=== PATIENT | female | born 1950 | race Caucasian/White ===

== ENCOUNTER 2018-03-24 07:07 | Day surgery (SDC) | payer MEDICARE ==
[~2018-03-24 07:07] MED LIST: Acetaminophen TAB* 325 MG PO PRN; Buffered Lidocaine 0.9% SYRIN* 5 ML/SYR SYRINGE INTRADERM ONE
[2018-03-24] MEDS ORDERED: Midazolam* 1 MG/ML 2 ML VIAL (2 MG) ONE (08:11)
[2018-03-24 08:58] VITALS: BP 134/65
[2018-03-24] MEDS ORDERED: Lidocaine 1%* 5 ML VIAL ONE (10:22)
[2018-03-24] MEDS ORDERED: Neomycin/Polymy/Dex OPHTH.OIN* 3.5 GM ONE (10:22)
[2018-03-24] MEDS ORDERED: Povidone Iodine 5% OPTH* 30 ML BTL ONE (10:22)
[2018-03-24] MEDS ORDERED: acetaZOLAMIDE TAB* 250 MG ONE (10:22)
[2018-03-24] MEDS ORDERED: Cyclopentolate 1% OPTH.SOL* 2 ML BTL ONE (10:22)
[2018-03-24] MEDS ORDERED: Phenylephrine 2.5% OPTH.SOL* 2 ML BTL ONE (10:22)
[2018-03-24] MEDS ORDERED: Tetracaine 0.5% OPTH.SOL 4 ML* 1 DROP BTL ONE (10:22)
[2018-03-24] MEDS ORDERED: Ketorolac 0.5% OPHTH (NF) 0.5 % 5 ML BTL ONE (10:22)
[2018-03-24] MEDS ORDERED: Tropicamide 1% OPTH.SOL* BTL ONE (10:22)
--- NOTE | 2018-03-25 09:51 | OP ---
DATE OF OPERATION: 03/24/18 - [facility] DATE OF : 46 SURGEON: Stas Tobin MD ANESTHESIA: Monitored anesthesia care. PREOPERATIVE DIAGNOSIS: Cataract, right eye. POSTOPERATIVE DIAGNOSIS: Cataract, right eye. OPERATIVE PROCEDURE: Extracapsular cataract extraction of the right eye with intraocular lens implant. IMPLANT: SN60WF 21.0 diopter lens to the right eye. COMPLICATIONS: None. DESCRIPTION OF PROCEDURE: The patient was given phenylephrine 2.5 % and cyclopentolate 1% eye drops to the operative eye in the preoperative area. The patient was taken to the operating room where a time-out was taken to identify the correct patient, site, and side of surgery. The patient's right eye was prepped and draped in the usual sterile fashion with 5% Betadine. A second time- out was taken to verify the correct patient, side, and site of surgery, as well as the correct lens implant. A lid speculum was placed to the right eye. A 1mm paracentesis blade was used to make a clear corneal incision. Preservative-free 1% lidocaine was injected into the anterior chamber. DisCoVisc was then injected into the anterior chamber. A 2.75 mm keratome blade was used to make a triplanar incision. A cystotome initiated a capsulorrhexis, which was completed with Utrata forceps in a continuous and curvilinear manner. Hydrodissection of the lens was performed with BSS on a cannula. The lens could be spun in a capsular bag. The phacoemulsification handpiece was used with a divide-and- conquer technique to remove the nucleus. The I/A handpiece then removed the residual cortical lens material. DisCoVisc was injected to inflate the capsular bag. The planned SN60WF 21.0 diopter lens was injected into the capsular bag. The residual DisCoVisc was removed from the eye with the I/A handpiece. The corneal incisions were hydrated and no leaks occurred at physiologic pressure around 20 mmHg per palpation. The lid speculum was removed and drapes were removed. Maxitrol ointment was placed to the surface of the operative eye. An adhesive patch and shield was then placed on the operative eye. The patient was taken to the postoperative area in stable condition. [id number]/[facility] #: [id number] [facility]
== END 2018-03-24 09:07 | disposition home or self-care (01) ==
LOC: OREAST 07:07
PROVIDERS: ATTEND Student in an Organized Health Care Education/Training Program
DX: Z01.818 Encounter for other preprocedural examination (principal); H25.13 Age-related nuclear cataract, bilateral; K21.9 Gastro-esophageal reflux disease without esophagitis; E78.00 Pure hypercholesterolemia, unspecified; E11.3293 Type 2 diabetes mellitus with mild nonproliferative diabetic retinopathy without macular edema, bilateral
CPT/HCPCS: A9270-GY; J2250; V2632

== ENCOUNTER 2018-03-29 10:44 | Day surgery (SDC) | payer MEDICARE ==
[2018-03-29] MEDS ORDERED: fentaNYL* 50 MCG/ML 2 ML VIAL (100 MCG VIAL) ONE (11:48)
[2018-03-29] MEDS ORDERED: Midazolam* 1 MG/ML 2 ML VIAL (2 MG) ONE (11:48)
[2018-03-29 12:47] VITALS: BP 143/59
[2018-03-29] MEDS ORDERED: Tropicamide 1% OPTH.SOL* BTL ONE (14:32)
[2018-03-29] MEDS ORDERED: Cyclopentolate 1% OPTH.SOL* 2 ML BTL ONE (14:32)
[2018-03-29] MEDS ORDERED: acetaZOLAMIDE TAB* 250 MG ONE (14:32)
[2018-03-29] MEDS ORDERED: Neomycin/Polymy/Dex OPHTH.OIN* 3.5 GM ONE (14:32)
[2018-03-29] MEDS ORDERED: Tetracaine 0.5% OPTH.SOL 4 ML* 1 DROP BTL ONE (14:32)
[2018-03-29] MEDS ORDERED: Lidocaine 1%* 5 ML VIAL ONE (14:32)
[2018-03-29] MEDS ORDERED: Povidone Iodine 5% OPTH* 30 ML BTL ONE (14:32)
[2018-03-29] MEDS ORDERED: Phenylephrine 2.5% OPTH.SOL* 2 ML BTL ONE (14:32)
[2018-03-29] MEDS ORDERED: Ketorolac 0.5% OPHTH (NF) 0.5 % 5 ML BTL ONE (14:32)
--- NOTE | 2018-03-29 15:09 | OP ---
DATE OF OPERATION: 03/29/2018 - [facility] DATE OF : 46 SURGEON: Stas Tobin MD ANESTHESIA: Monitored anesthesia care. PREOPERATIVE DIAGNOSIS: Cataract, left eye. POSTOPERATIVE DIAGNOSIS: Cataract, left eye. OPERATIVE PROCEDURE: Extracapsular cataract extraction of the left eye with intraocular lens implant. IMPLANT: SN60WF 21.0 diopter lens to the left eye. COMPLICATIONS: None. DESCRIPTION OF PROCEDURE: The patient was given phenylephrine 2.5 % and cyclopentolate 1% eye drops to the operative eye in the preoperative area. The patient was taken to the operating room where a time-out was taken to identify the correct patient, site, and side of surgery. The patient's left eye was prepped and draped in the usual sterile fashion with 5% Betadine. A second time- out was taken to verify the correct patient, side, and site of surgery, as well as the correct lens implant. A lid speculum was placed to the left eye. A 1mm paracentesis blade was used to make a clear corneal incision. Preservative-free 1% lidocaine was injected into the anterior chamber. DisCoVisc was then injected into the anterior chamber. A 2.75 mm keratome blade was used to make a triplanar incision. A cystotome initiated a capsulorrhexis, which was completed with Utrata forceps in a continuous and curvilinear manner. Hydrodissection of the lens was performed with BSS on a cannula. The lens could be spun in a capsular bag. The phacoemulsification handpiece was used with a divide-and- conquer technique to remove the nucleus. The I/A handpiece then removed the residual cortical lens material. DisCoVisc was injected to inflate the capsular bag. The planned SN60WF 21.0 diopter lens was injected into the capsular bag. The residual DisCoVisc was removed from the eye with the I/A handpiece. The corneal incisions were hydrated and no leaks occurred at physiologic pressure around 20 mmHg per palpation. The lid speculum was removed and drapes were removed. Maxitrol ointment was placed to the surface of the operative eye. An adhesive patch and shield was then placed on the operative eye. The patient was taken to the postoperative area in stable condition. [id number]/[facility] #: [id number] [facility]
== END 2018-03-29 13:05 | disposition home or self-care (01) ==
LOC: OREAST 10:44
PROVIDERS: ATTEND Student in an Organized Health Care Education/Training Program
DX: Z01.818 Encounter for other preprocedural examination (principal); H25.12 Age-related nuclear cataract, left eye; K21.9 Gastro-esophageal reflux disease without esophagitis; E78.00 Pure hypercholesterolemia, unspecified; E11.3293 Type 2 diabetes mellitus with mild nonproliferative diabetic retinopathy without macular edema, bilateral; Z88.0 Allergy status to penicillin; Z96.1 Presence of intraocular lens
CPT/HCPCS: A9270-GY; J2250; J3010; V2632

== ENCOUNTER 2018-04-07 19:42 | Emergency (ER) | payer MEDICARE ==
[2018-04-07 20:01] VITALS: BP 144/66
--- NOTE | 2018-04-07 21:31 | ED ---
Complex/Multi-Sys Presentation - HPI Summary HPI Summary: Ms. Mei fell in a store about 4 days ago landing on her right hip and arm. She had a great deal pain at the time both refused care. She has since been plagued with right hip pain and right elbow pain. She is walking but it is painful to walk. She did not hit her head and denies neck pain or weakness/ paresthesias. - History Of Current Complaint Chief Complaint: UCTrauma Time Seen by Provider: 04/07/18 20:29 Hx Obtained From: Patient Onset/Duration: Sudden Onset Timing: Constant Severity Currently: Moderate Severity Initially: Moderate Character: Sharp - Allergies/Home Medications Allergies/Adverse Reactions: Allergies Allergy/AdvReac Type Severity Reaction Status Date / Time Penicillins Allergy Hives Verified 04/07/18 20:02 PMH/Surg Hx/FS Hx/Imm Hx Endocrine/Hematology History: Reports: Hx Diabetes Denies: Hx Thyroid Disease Cardiovascular History: Denies: Hx Hypertension, Hx Pacemaker/ICD, Other Cardiovascular Problems/ Disorders Respiratory History: Denies: Hx Asthma, Hx Chronic Obstructive Pulmonary Disease (COPD), Other Respiratory Problems/Disorders GI History: Denies: Hx Ulcer, Other GI Disorders History: Denies: Other Problems/Disorders Musculoskeletal History: Reports: Hx Arthritis - mild arthritis per pt, Other Musculoskeletal History - Muscle aches and pains, states it is from the insulin Denies: Hx Osteoporosis Sensory History: Reports: Hx Cataracts - Bilateral, Hx Contacts or Glasses - glasses Denies: Hx Hearing Aid Opthamlomology History: Reports: Hx Cataracts - Bilateral, Hx Contacts or Glasses - glasses Neurological History: Denies: Other Neuro Impairments/Disorders Psychiatric History: Denies: Hx Panic Disorder - Cancer History Hx Chemotherapy: No Hx Radiation Therapy: No - Surgical History Surgery Procedure, Year, and Place: GALLBLADDER. CARDIAC CATH - NO STENTS "years ago" Hx Anesthesia Reactions: No Infectious Disease History: No Infectious Disease History: Denies: Hx Hepatitis, Hx Human Immunodeficiency Virus (HIV), Traveled Outside the [place] in Last 30 Days - Social History Alcohol Use: Rare Substance Use Type: Reports: None Smoking Status (MU): Never Smoked Tobacco Type: Cigarettes Review of Systems Constitutional: Negative Eyes: Negative ENT: Negative Cardiovascular: Negative Respiratory: Negative Gastrointestinal: Negative Genitourinary: Negative Positive: Arthralgia Skin: Negative Neurological: Negative Psychological: Normal All Other Systems Reviewed And Are Negative: Yes Physical Exam - Summary Physical Exam Summary: She is nontoxic in appearance and her vitals are stable but she is in some distress with ambulation. Triage Information Reviewed: Yes Vital Signs On Initial Exam: Initial Vitals Temp Pulse Resp BP Pulse Ox 99.2 F 85 18 144/66 97 04/07/18 19:57 04/07/18 19:57 04/07/18 19:57 04/07/18 19:57 04/07/18 19:57 Vital Signs Reviewed: Yes Appearance: Positive: Pain Distress Skin: Positive: Warm, Skin Color Reflects Adequate Perfusion, Dry Eyes: Positive: Normal ENT: Positive: Normal ENT inspection Neck: Positive: Supple Respiratory/Lung Sounds: Positive: Clear to Auscultation Cardiovascular: Positive: Normal Abdomen Description: Positive: Nontender Bowel Sounds: Positive: Present Musculoskeletal: Positive: Abnormal @ - She is mildy tender to ROM and palpation of her right hip. She is tender over her right olecranon. The rest of the elbow has full active and passive ROM. Neurological: Positive: Normal Psychiatric: Positive: Normal Diagnostics - Vital Signs Vital Signs Temp Pulse Resp BP Pulse Ox 04/07/18 19:57 99.2 F 85 18 144/66 97 - Laboratory Lab Statement: Any lab studies that have been ordered have been reviewed, and results considered in the medical decision making process. - Radiology hip Radiology Interpretation Completed By: ED Physician - no acute process elbow Radiology Interpretation Completed By: ED Physician - no acute process Complex Multi-Symp Course/Dx Course Of Treatment: Ms Mei fell and hurt her right hip area and minorly her right elbow about 4 days ago. Nothing appears to be broken. She cannot tolerate anti-inflammatories but is willing to take Tylenol. She didn't want anything stronger. I recommended rest and follow-up if not improved in about a week. - Diagnoses Provider Diagnoses: Sprain of right hip, Contusion of elbow, right Discharge - Sign-Out/Discharge Documenting (check all that apply): Patient Departure All imaging exams completed and their final reports reviewed: Yes - Discharge Plan Condition: Stable Disposition: HOME Patient Education Materials: Hip Sprain (ED) Referrals: Rosemarie Dumont MD [Primary Care Provider] - Jj Bahena MD [Medical Doctor] - Additional Instructions: Follow up with Dr. Bahena if not improved in a week. - Billing Disposition and Condition Condition: STABLE Disposition: Home
== END 2018-04-07 21:44 | disposition home or self-care (01) ==
LOC: UCEAST 19:42
DX: S73.101A Unspecified sprain of right hip, initial encounter (principal); S50.01XA Contusion of right elbow, initial encounter; W19.XXXA Unspecified fall, initial encounter; Y92.512 Supermarket, store or market as the place of occurrence of the external cause; E11.9 Type 2 diabetes mellitus without complications; Z88.0 Allergy status to penicillin
CPT/HCPCS: 99201; G0463

== ENCOUNTER 2019-01-29 17:53 | Emergency (ER) | payer MEDICARE ==
[2019-01-29 17:59] VITALS: BP 144/68
--- NOTE | 2019-01-29 18:29 | UC ---
Abdominal Pain Female HPI - HPI Summary HPI Summary: 68yo female presents with right upper abdominal pain since last night. She describes it as an aching pain that was intermittent last night but is now constant. Denies any radiation of pain. Denies n/v, diarrhea, constipation. Denies burning or changes in urination. Denies cough, sore throat. Denies shortness of breath and wheezing. Denies fever and chills. Denies any relieving factors. Patient states that there is a slight increase in the ache with deep breaths. Patient says she had gallbladder removed over ten years ago. - History of Current Complaint Chief Complaint: UCAbdominalPain Stated Complaint: ABD PAIN Time Seen by Provider: 01/29/19 18:01 Hx Obtained From: Patient Onset/Duration: Sudden Onset Timing: Constant Severity Initially: Mild Severity Currently: Moderate Pain Intensity: 5 Pain Scale Used: 0-10 Numeric Location: Discrete At: RUQ Radiates: No Character: Aching Aggravating Factor(s): Deep Breaths Alleviating Factor(s): Nothing Allergies/Adverse Reactions: Allergies Allergy/AdvReac Type Severity Reaction Status Date / Time Penicillins Allergy Hives Verified 01/29/19 17:59 PMH/Surg Hx/FS Hx/Imm Hx Endocrine History: Diabetes GI/ History: Gastroesophageal Reflux - Surgical History Surgical History: Yes Surgery Procedure, Year, and Place: GALLBLADDER. CARDIAC CATH - NO STENTS "years ago" - Family History Known Family History: Positive: Unknown - Social History Alcohol Use: Rare Substance Use Type: None Smoking Status (MU): Never Smoked Tobacco Type: Cigarettes Review of Systems All Other Systems Reviewed And Are Negative: No Constitutional: Negative: Fever, Chills Skin: Negative: Rash Respiratory: Negative: Shortness Of Breath, Cough Gastrointestinal: Positive: Abdominal Pain. Negative: Vomiting, Diarrhea, Nausea Genitourinary: Negative: Dysuria, Vaginal/Penile Burning Physical Exam Appearance: Well-Appearing, Well-Nourished Vital Signs: Initial Vital Signs Temp 98.7 F 01/29/19 17:56 Pulse 84 01/29/19 17:56 Resp 12 01/29/19 17:56 BP 144/68 01/29/19 17:56 Pulse Ox 98 01/29/19 17:56 Laboratory Last Values POC Urine Color Yellow 01/29/19 18:24 POC Urine Clarity Clear 01/29/19 18:24 POC Urine pH 6.5 (5-9) 01/29/19 18:24 POC Ur Specif [place] 1.010 (1.010-1.030) 01/29/19 18:24 POC Urine Protein Negative (Negative) 01/29/19 18:24 POC Ur Glucose (UA) Negative (Negative) 01/29/19 18:24 POC Urine Ketones Negative (Negative) 01/29/19 18:24 POC Urine Blood Negative (Negative) 01/29/19 18:24 POC Urine Nitrite Negative (Negative) 01/29/19 18:24 POC Urine Bilirubin Negative (Negative) 01/29/19 18:24 POC Urine Urobilinogen 0.2 (Negative) 01/29/19 18:24 POC U Leukocyte Esteras Negative (Negative) 01/29/19 18:24 Vital Signs Reviewed: Yes Respiratory: Positive: Lungs clear, Normal breath sounds Cardiovascular: Positive: RRR, Pulses Normal Abdominal Exam: Other - RUQ tenderness on palpation Abdomen Description: Negative: CVA Tenderness (R), CVA Tenderness (L), Guarding , Hernia @, Hepatomegaly Bowel Sounds: Positive: Present Skin: Negative: Rashes Abd Pain Female Course/Dx - Course Course Of Treatment: Patient was also examined by Dr. Schwartz. Patient has moderate RUQ tenderness on palpation. She has normal vital signs and a negative UA. Discussed patient options of going to the ED for further workup or returning home and following up with her PCP. Patient chose to return home. She was instructed to take tylenol as directed for her pain and go to the ED for worsening symptoms. - Differential Dx/Diagnosis Provider Diagnosis: Right upper quadrant abdominal pain Discharge ED - Sign-Out/Discharge Documenting (check all that apply): Patient Departure All imaging exams completed and their final reports reviewed: No Studies - Discharge Plan Condition: Stable Disposition: HOME Patient Education Materials: Acute Abdominal Pain (DC) Referrals: Rosemarie Dumont MD [Primary Care Provider] - - Billing Disposition and Condition Condition: STABLE Disposition: Home
== END 2019-01-29 18:58 | disposition home or self-care (01) ==
LOC: UCEAST 17:53
DX: R10.11 Right upper quadrant pain (principal); E11.9 Type 2 diabetes mellitus without complications; Z88.0 Allergy status to penicillin
CPT/HCPCS: 81003; 99211; G0463

== ENCOUNTER 2019-05-24 17:32 | Emergency (ER) | payer MEDICARE ==
--- NOTE | 2019-05-24 17:59 | UC ---
Abdominal Pain Female HPI - HPI Summary HPI Summary: 68 yo female presents with abdominal pain. She tells me that this morning she developed RUQ and epigastric pain and has vomited 4-5 times today - mostly dry heaves. Has not been able to eat or drink all day. Pain has worsened throughout the day. She felt well yesterday. Does endorse some loose stools today as well. Hx of cardiac cath 15+ years ago. Hx of cholecystectomy 5+ years ago. Also complains of chronic left shoulder pain that she says is much worse today. Denies SOB, cough, recent illness, fever, dysuria, blood in stool. - History of Current Complaint Chief Complaint: UCAbdominalPain Stated Complaint: STOMACH PAIN Time Seen by Provider: 05/24/19 17:45 Hx Obtained From: Patient Onset/Duration: Sudden Onset Severity Initially: Moderate Severity Currently: Severe Pain Intensity: 7 Allergies/Adverse Reactions: Allergies Allergy/AdvReac Type Severity Reaction Status Date / Time Penicillins Allergy Hives Verified 01/29/19 17:59 PMH/Surg Hx/FS Hx/Imm Hx Endocrine History: Diabetes Cardiovascular History: Cardiac Disease - Surgical History Surgical History: Yes Surgery Procedure, Year, and Place: GALLBLADDER. CARDIAC CATH - NO STENTS "years ago" - Family History Known Family History: Positive: Unknown - Social History Lives: With Family Alcohol Use: Rare Substance Use Type: None Smoking Status (MU): Never Smoked Tobacco Type: Cigarettes Review of Systems All Other Systems Reviewed And Are Negative: No Constitutional: Positive: Negative Skin: Positive: Negative Eyes: Positive: Negative ENT: Positive: Negative Respiratory: Positive: Negative Cardiovascular: Positive: Negative Gastrointestinal: Positive: Abdominal Pain, Vomiting, Nausea Genitourinary: Positive: Negative Motor: Positive: Negative Neurovascular: Positive: Negative Musculoskeletal: Positive: Other: - Left shoulder pain Neurological: Positive: Negative Psychological: Positive: Negative Physical Exam - Summary Physical Exam Summary: GENERAL: Mild pain distress. SKIN: No rashes, sores, or open wounds. NECK: Supple. Nontender. No lymphadenopathy. CHEST: CTAB. No r/r/w. No accessory muscle use. Breathing comfortably and in no distress. CV: Tachycardic. Pulses intact. Brisk cap refill. ABDOMEN: Soft. Mild TTP RUQ and epiastric region. No CVA tenderness. Bowel sounds present NEURO: Alert. PSYCH: Age appropriate behavior. Triage Information Reviewed: Yes Vital Signs: Initial Vital Signs Temp 101.4 F 05/24/19 17:52 Pulse 118 05/24/19 17:52 Resp 18 05/24/19 17:52 BP 146/63 05/24/19 17:52 Pulse Ox 96 05/24/19 17:52 Vital Signs Reviewed: Yes Diagnostics - EKG Summary of EKG Findings: Sinus tachycardia at 116bpm. No STEMI as read by Dr. Schwartz. Abd Pain Female Course/Dx - Course Course Of Treatment: POC glucose 238. Febrile here in the clinic. Could be a simple gastroenteritis, but given her age, diabetes, abdominal pain with vomiting, and fever - recommend transfer to the ED for further evaluation. Pt and son with her are agreeable to this. IVF started in clinic. Given 4mg zofran for her nausea. EMS called. Reports called to Dr. Ybarra in the ED. - Differential Dx/Diagnosis Provider Diagnosis: Abdominal pain, Vomiting, Fever Discharge ED - Sign-Out/Discharge Documenting (check all that apply): Patient Departure All imaging exams completed and their final reports reviewed: No Studies - Discharge Plan Condition: Stable Disposition: TRANS HIGHER LVL OF CARE FAC Referrals: Rosemarie Dumont MD [Primary Care Provider] - - Billing Disposition and Condition Condition: STABLE Disposition: Trans Higher Lvl of Care Fac
[2019-05-24] MEDS ORDERED: NS 0.9% 1000 ML** 1,000 ML IV ONE (18:08)
[2019-05-24] MEDS ORDERED: Ondansetron INJ* 2 MG/ML VIAL IV ONE (18:08)
[2019-05-24 18:42] LABS: Influenza A Molecular NEGATIVE (Negative); Influenza B Molecular NEGATIVE (Negative)
[2019-05-24 18:55] VITALS: BP 144/67
== END 2019-05-24 18:40 | disposition short-term general hospital (02) ==
LOC: UCEAST 17:32
DX: R10.11 Right upper quadrant pain (principal); R50.9 Fever, unspecified; R11.10 Vomiting, unspecified; E11.9 Type 2 diabetes mellitus without complications; R11.0 Nausea; M25.512 Pain in left shoulder; Z88.0 Allergy status to penicillin
CPT/HCPCS: 99213; G0463

== ENCOUNTER 2019-05-24 19:03 | Emergency (ER) | payer MEDICARE ==
--- NOTE | 2019-05-24 19:16 | ED ---
Abdominal Pain/Female - HPI Summary HPI Summary: Patient is a 68 y/o diabetic female who presents to [facility] with chief complaint of upper abdominal pain. Pain onset this morning, 05/24/19, when the patient awoke. She states that the pain has been constant and has progressively worsened. Pain is currently rated 6/10. Nausea and vomiting are endorsed. BMs have been at baseline, patient had BM this morning. Stool was somewhat runny but not diarrhea. She endorses decreased appetite, noting that she had two pieces of toast this morning. Patient went to [facility] [place] [place] and states that she was told that she had a fever. sent patient to ED for further workup. Hx of cholecystectomy is endorsed. She also notes pain to her shoulders bilaterally. Home medications and allergies are reviewed. - History of Current Complaint Stated Complaint: ABD PAIN PER EMS Time Seen by Provider: 05/24/19 19:09 Hx Obtained From: Patient Onset/Duration: Lasting Hours, Still Present Timing: Hours Severity Initially: Mild Severity Currently: Moderate Pain Intensity: 6 Pain Scale Used: 0-10 Numeric Location: Other - upper abdomen Associated Signs and Symptoms: Positive: Fever - reported at , none here, Decreased Appetite, Nausea, Vomiting, Other: - positive - bilateral shoulder pain. Negative: Constipation, Diarrhea Allergies/Adverse Reactions: Allergies Allergy/AdvReac Type Severity Reaction Status Date / Time Penicillins Allergy Hives Verified 01/29/19 17:59 Home Medications: Home Medications Insulin Degludec [Tresiba Flextouch] 70 unit SUBCUT QAM 05/24/19 [History Confirmed 05/24/19] PMH/Surg Hx/FS Hx/Imm Hx Endocrine/Hematology History: Reports: Hx Diabetes Denies: Hx Thyroid Disease Cardiovascular History: Denies: Hx Hypertension, Hx Pacemaker/ICD, Other Cardiovascular Problems/ Disorders Respiratory History: Denies: Hx Asthma, Hx Chronic Obstructive Pulmonary Disease (COPD), Other Respiratory Problems/Disorders GI History: Denies: Hx Ulcer, Other GI Disorders History: Denies: Other Problems/Disorders Musculoskeletal History: Reports: Hx Arthritis - mild arthritis per pt, Other Musculoskeletal History - Muscle aches and pains, states it is from the insulin Denies: Hx Osteoporosis Sensory History: Reports: Hx Cataracts - Bilateral, Hx Contacts or Glasses - glasses Denies: Hx Hearing Aid Opthamlomology History: Reports: Hx Cataracts - Bilateral, Hx Contacts or Glasses - glasses Neurological History: Denies: Other Neuro Impairments/Disorders Psychiatric History: Denies: Hx Panic Disorder - Cancer History Hx Chemotherapy: No Hx Radiation Therapy: No - Surgical History Surgery Procedure, Year, and Place: GALLBLADDER. CARDIAC CATH - NO STENTS "years ago" Hx Anesthesia Reactions: No Infectious Disease History: Denies: Hx Hepatitis, Hx Human Immunodeficiency Virus (HIV) - Family History Known Family History: Negative: Blood Disorder - Social History Alcohol Use: Rare Substance Use Type: Reports: None Smoking Status (MU): Never Smoked Tobacco Type: Cigarettes Review of Systems Positive: Fever Gastrointestinal: Other - positive - decreased appetite; negative - constipation Positive: Abdominal Pain, Vomiting, Nausea. Negative: Diarrhea Musculoskeletal: Other - positive - bilateral shoulder pain All Other Systems Reviewed And Are Negative: Yes Physical Exam - Summary Physical Exam Summary: Appearance: Well-appearing, Well-nourished, lying in bed comfortably Skin: Warm, dry, no obvious rash Eyes: sclera anicteric, no conjunctival pallor ENT: mucous membranes moist, pharynx appears normal Neck: Supple, nontender Respiratory: Clear to auscultation, no signs of respiratory distress Cardiovascular: Normal S1, S2. No murmurs. Normal distal pulses in tibial and radial bilaterally. Abdomen: Soft, mild upper abdominal tenderness without guarding or rebound, normal active bowel sounds present Musculoskeletal: Normal, Strength/ROM Intact Neurological: A&Ox3, awake and alert, mentation is normal, speech is fluent and appropriate Psychiatric: affect is normal, does not appear anxious or depressed Triage Information Reviewed: Yes Vital Signs Reviewed: Yes Procedures - Sedation Patient Received Moderate/Deep Sedation with Procedure: No Diagnostics - Laboratory Result Diagrams: 05/24/19 19:30 05/24/19 19:30 Lab Statement: Any lab studies that have been ordered have been reviewed, and results considered in the medical decision making process. - EKG 2118 Cardiac Rate: Tachycardia - rate of 111 BPM EKG Rhythm: Sinus Tachycardia Summary of EKG Findings: EKG showed sinus tachycardia with rate of 111 BPM, no STEMI. ED physician has reviewed and interpreted this EKG. Abdominal Pain Fem Course/Dx - Course Course Of Treatment: Patient is a 68 y/o diabetic female who presents to [facility] with chief complaint of upper abdominal pain. Pain onset this morning, 05/24/19 , when the patient awoke. She states that the pain has been constant and has progressively worsened. Pain is currently rated 6/10. Nausea and vomiting are endorsed. BMs have been at baseline, patient had BM this morning. Stool was somewhat runny but not diarrhea. She endorses decreased appetite, noting that she had two pieces of toast this morning. Patient went to [facility] [place] and states that she was told that she had a fever. sent patient to ED for further workup. Hx of cholecystectomy is endorsed. Abdomen: Soft, mild upper abdominal tenderness without guarding or rebound, normal active bowel sounds present. EKG showed sinus tachycardia with rate of 111 BPM, no STEMI. Bloodwork was obtained, abnormal values include MCH 33, MPV 6.8, absolute lymphs 0.6, sodium 133, chloride 100, BUN/creatinine ratio 25.4, glucose 211, calcium 8.5, CRP 18.15. UA showed 1+ glucose. During ED course, patient received fluids, Zofran 4 mg IV , and morphine 4 mg IV. Patient is signed out to Dr. Delgado at 05/24/[address] abd/pel. - Diagnoses Provider Diagnoses: Abdominal pain Discharge ED - Sign-Out/Discharge Documenting (check all that apply): Sign-Out Patient Signing out patient TO: Jenifer Delgado - Discharge Plan Condition: Stable Referrals: Rosemarie Dumont MD [Primary Care Provider] - - Attestation Statements Document Initiated by Scribe: Yes Documenting Scribe: MIMI GARDNER Provider For Whom Laurie is Documenting (Include Credential): JERED PEDRO MD Scribe Attestation: IMIMI, scribed for JERED PEDRO MD on 05/24/19 at 2203. Status of Scribe Document: Ready
[2019-05-24] MEDS ORDERED: Morphine 4 MG/ML VIAL (1 ml) 4 MG/ML VIAL IV ONE (19:19)
[2019-05-24] MEDS ORDERED: Ondansetron INJ* 2 MG/ML VIAL IV ONE (19:19)
[2019-05-24] MEDS ORDERED: NS 0.9% 1000 ML** 1,000 ML IV ONE (19:21)
[2019-05-24 19:36] LABS: ABS Lymphocytes 0.6 10^3/ul (1.0-4.8); ABS Monocytes 0.4 10^3/ul (0-0.8); ABS Neutrophils 7.2 10^3/ul (1.5-7.7); Eosinophil % 0.1 %; Hematocrit 42 % (35-47); Hemoglobin 14.5 g/dL (12.0-16.0); Lymphocyte % 7.3 %; Mean Corpuscular HGB Conc 35 g/dL (31-36); Mean Corpuscular Hemoglobin 33 pg (27-31); Mean Corpuscular Volume 94 fL (80-97); Mean Platelet Volume 6.8 fL (7.4-10.4); Platelet Count 223 10^3/uL (150-450); Red Blood Count 4.43 10^6 /uL (3.70-4.87); Red Cell Distribution Width 12 % (10-15); White Blood Count 8.1 10^3/uL (3.5-10.8)
[2019-05-24 19:53] LABS: Albumin 3.9 g/dL (3.2-5.2); Albumin/Globulin Ratio 1.1 (1-3); BUN/Creatinine Ratio 25.4 (8-20); C Reactive Protein 18.15 mg/L (<8.01); Calcium 8.5 mg/dL (8.6-10.3); EGFR African American 121.9 (>60); EGFR Non-African American 100.8 (>60); Globulin 3.4 g/dL (2-4); Potassium 3.9 mmol/L (3.5-5.0); Total Bilirubin 0.5 mg/dL (0.2-1.0); Total Protein 7.3 g/dL (6.4-8.9)
[2019-05-24 19:54] LABS: Troponin I 0.01 ng/mL (<0.03)
[2019-05-24 21:12] LABS: Urine Appearance Cloudy; Urine Bilirubin Negative (Negative); Urine Blood Negative (Negative); Urine Color Yellow; Urine Glucose 1+(50 mg/dL) (Negative); Urine Ketones Negative (Negative); Urine Nitrite Negative (Negative); Urine Protein Negative (Negative); Urine Specific Gravity 1.009 (1.010-1.030); Urine Urobilinogen Negative (Negative)
[2019-05-24] MEDS ORDERED: Iodixanol* (CONTRAST) 320 MG/ML 100 ML SDV IV ONE (21:33)
--- NOTE | 2019-05-24 22:11 | ED ---
Progress - Progress Note Progress Note: Pt is a signout from Dr. Ybarra at 2200 on 05/24/[address] A/P results. - Results/Orders Results/Orders: CT a/p shows: No acute findings. ED physician has reviewed this report. Re-Evaluation - Re-Evaluation 1st re-eval Re-Evaluation Time: 23:15 Change: Improved Comment: I have discussed results with the patient and abd pain is resolved. Discussed symptoms that warrant immediate return to ED. Course/Dx - Diagnoses Provider Diagnoses: Abdominal pain, Vomiting Discharge ED - Sign-Out/Discharge Documenting (check all that apply): Patient Departure, Receiving Sign-Out Receiving patient FROM: Jayy Ybarra - Discharge Plan Condition: Stable Disposition: HOME Patient Education Materials: Abdominal Pain (ED) Referrals: Rosemarie Dumont MD [Primary Care Provider] - Additional Instructions: Please follow up with your primary care physician within three days. Please return to ED for any new or worsening symptoms. - Billing Disposition and Condition Condition: STABLE Disposition: Home - Attestation Statements Document Initiated by Scribe: Yes Documenting Scribe: Krystina Faust Provider For Whom Scribe is Documenting (Include Credential): Jenifer Delgado MD. Scribe Attestation: I, Krystina Faust, scribed for Jenifer Delgado MD. on 05/24/19 at 2351. Scribe Documentation Reviewed: Yes Provider Attestation: The documentation as recorded by the scribe, Krystina Faust accurately reflects the service I personally performed and the decisions made by me, Jenifer Delgado MD. Status of Scribe Document: Viewed
[2019-05-24] MEDS ORDERED: O ndansetron ODT 4MG 5TAB PRPK 4 MG PAK PO ONE (23:12)
[2019-05-24 23:58] VITALS: BP 107/61
== END 2019-05-24 23:58 | disposition home or self-care (01) ==
LOC: ED 19:03
DX: R10.9 Unspecified abdominal pain (principal); R11.10 Vomiting, unspecified; Z88.0 Allergy status to penicillin; Z79.4 Long term (current) use of insulin; E11.9 Type 2 diabetes mellitus without complications
CPT/HCPCS: 36415; 74177; 80053; 81003; 83605; 83690; 84484; 85025; 86140; 93005; 96361; 96374; 96375; 99284; A9270-GY; J2270; J2405; Q9967

== ENCOUNTER 2020-01-11 23:29 | Observation (INO) ==
[2020-01-11] MEDS ORDERED: NS 0.9% 1000 ml BAG 1,000 ML IV ONE (23:57)
[2020-01-12 00:22] LABS: INR 1.12 (0.82-1.09)
[2020-01-12 00:28] LABS: Albumin 4.1 g/dL (3.2-5.2); Albumin/Globulin Ratio 1.1 (1-3); BUN/Creatinine Ratio 15.8 (8-20); Calcium 9.4 mg/dL (8.6-10.3); EGFR African American 126.5 (>60); EGFR Non-African American 104.6 (>60); Globulin 3.6 g/dL (2-4); Total Bilirubin 0.6 mg/dL (0.2-1.0); Total Protein 7.7 g/dL (6.4-8.9)
[2020-01-12 00:32] LABS: ABS Lymphocytes 0.9 10^3/ul (1.0-4.8); ABS Monocytes 0.9 10^3/ul (0-0.8); ABS Neutrophils 8.5 10^3/ul (1.5-7.7); Eosinophil % 0.3 %; Hematocrit 39 % (35-47); Hemoglobin 14.1 g/dL (12.0-16.0); Lymphocyte % 9.1 %; Mean Corpuscular HGB Conc 36 g/dL (31-36); Mean Corpuscular Hemoglobin 34 pg (27-31); Mean Corpuscular Volume 93 fL (80-97); Mean Platelet Volume 6.8 fL (7.4-10.4); Platelet Count 160 10^3/uL (150-450); Red Blood Count 4.19 10^6 /uL (3.70-4.87); Red Cell Distribution Width 12 % (10-15); White Blood Count 10.3 10^3/uL (3.5-10.8)
[2020-01-12] MEDS ORDERED: Iodixanol (CONTRAST) 320 MG/ML 100 ML SDV IV ONE (01:10)
[2020-01-12 03:42] LABS: Lipase < 10 U/L (11.0-82.0)
[2020-01-12] MEDS ORDERED: Dextrose 50% Syringe 50 ml 25 GM/50 ML SYRINGE IV PUSH PRN (04:21)
[2020-01-12] MEDS ORDERED: Ondansetron 4 mg VIAL 2 MG/ML 2 ml VIAL IV PRN (04:21)
[2020-01-12] MEDS ORDERED: Nitroglycerin 0.3 mg TAB SL PRN (04:23)
[2020-01-12] MEDS: Heparin 5000 UNITS/ML 1 mL VIAL SUBCUT SCH ×2 (05:55→13:51)
[2020-01-12] MEDS ORDERED: fentaNYL PATCH 25 MCG/HR 1 PATCH TRANSDERM SCH (06:00)
[2020-01-12] MEDS ORDERED: fentaNYL Patch Check Q Shift NOTE FOLLOW UP SCH (07:00)
[2020-01-12] MEDS ORDERED: Insulin GLARGINE 100 un/ml 10 ml VIAL SUBCUT SCH (08:00)
[2020-01-12] MEDS ORDERED: INSULIN DEGLUDEC 45 UNIT SUBCUT SCH (09:00)
[2020-01-12] MEDS ORDERED: Regadenoson 0.4 MG/5 ML SYRINGE ONE (12:45)
[2020-01-12 15:19] VITALS: BP 110/62
[2020-01-12] MEDS ORDERED: TAGRISSO PO SCH (18:30)
== END 2020-01-12 16:45 | disposition home or self-care (01) ==
LOC: MEDTELE 23:29 → ED 23:29
PROVIDERS: ADMIT Internal Medicine; ATTEND Internal Medicine